=== PATIENT | female | born 1945 | race Caucasian/White ===

== ENCOUNTER 2016-06-16 12:05 | Day surgery (SDC) | payer OTHER ==
[2016-06-15 07:50] VITALS: BMI 18.4
[2016-06-16] MEDS ORDERED: MIDAZOLAM HCL 2 MG/2 ML SINGLE DOSE VIAL ONE (13:45)
[2016-06-16] MEDS ORDERED: ROPIVACAINE HCL 0.5% 30ML VIAL ONE (13:45)
[2016-06-16] MEDS ORDERED: PROPOFOL 20 ML ONE ×2 (14:12)
[2016-06-16] MEDS ORDERED: ceFAZolin SODIUM 1 GM VIAL ONE (14:31)
[2016-06-16] MEDS ORDERED: ONDANSETRON 4 MG/2 ML VIAL ONE (14:58)
[2016-06-16] MEDS ORDERED: ONDANSETRON 4 MG/2 ML VIAL IVPUSH PRN (15:31)
[2016-06-16] MEDS ORDERED: oxyCODONE HCL 5 MG TABLET PO PRN ×2 (15:31)
[2016-06-16 15:41] VITALS: TEMP 98.6
[2016-06-16 16:41] VITALS: BP 110/71; PULSE 72
--- NOTE | 2016-06-16 18:12 | OP ---
DATE OF OPERATION: DATE OF DICTATION: 06/16/2016 PREOPERATIVE DIAGNOSIS: Right comminuted displaced interarticular distal radius fracture. POSTOPERATIVE DIAGNOSIS: Right comminuted displaced interarticular distal radius fracture. OPERATIVE PROCEDURE: 1. Right open reduction internal fixation of comminuted interarticular displaced distal radius fracture with internal fixation of 3 or more fragments. 2. Right brachioradialis tenotomy. SURGEON: Julio César Reyes M.D. REFRIGERATOR ASSEMBLER: Ulises Smith ANESTHESIA: Regional. COMPLICATIONS: None. ESTIMATED BLOOD LOSS: Minimal. INDICATION FOR PROCEDURE: The patient is a 70-year-old female with the above findings, indicated for operative treatment. Risks, benefits, and alternatives were discussed with patient at length, proper informed consent was obtained. PROCEDURE: After proper identification of the patient and correct operative site, patient was brought to the operating room and placed supine on the operating room table, prominences well padded. Sedation was given by the anesthesiologist. Local anesthesia was given at this time. Regional anesthesia is given, 2% lidocaine. Right upper extremity is prepped and draped in usual sterile fashion. Well padded tourniquet was placed with a sterile prep. Esmarch bandage to exsanguinate the right upper extremity. Tourniquet inflated to 250 mmHg. Longitudinal incision was made over the volar aspect of the wrist. Incision was taken sharply through the skin with sharp and blunt dissection to subcutaneous tissues. Flexor carpi radialis tendon along with the contents of the carpal canal were bluntly and gently retracted in an ulnarly direction for the remainder of the procedure. Pronator quadratus was found to be ruptured. It was divided and developed and freed off the volar aspect of distal radius fracture. A high amount of comminution was noted with interarticular extension noted radially. A brachioradialis tenotomy was necessary to release the radial styloid fragment. This was done in a subperiosteal fashion. Fragments were then reduced and held in an Acumed Acu-Loc 2 distal radius plate with distal locking screws and proximal nonlocking screws. This provided secure, stable fixation of the fracture. Distal radial joint and scapholunate intervals were stressed, and there was no instability. Wound was irrigated with saline and repaired in layers including the pronator quadratus with 4-0 Vicryl and 5-0 Monocryl suture. Steri-Strips, sterile dressings and a volar wrist splint were placed. Patient was reversed from anesthesia and brought to recovery in stable condition. He tolerated procedure well. Chance Gillis, the clerical dentist assistant, was integral throughout the procedure. This procedure could not have been performed without a skilled operative clerical dentist assistant. JULIO CÉSAR REYES M.D. [id number]
== END 2016-06-16 16:53 | disposition home or self-care (01) ==
LOC: FASU 12:05
PROVIDERS: ATTEND Orthopaedic Surgery Hand Surgery
PROC: 0LN50ZZ Release Right Lower Arm and Wrist Tendon, Open Approach (ICD-10-PCS; 2016-06-16)
PROC: 0PSH04Z Reposition Right Radius with Internal Fixation Device, Open Approach (ICD-10-PCS; principal; 2016-06-16 14:42)
DX: S52.531A Colles' fracture of right radius, initial encounter for closed fracture (principal); X58.XXXA Exposure to other specified factors, initial encounter; Y93.9 Activity, unspecified; Y92.9 Unspecified place or not applicable
CPT/HCPCS: 73110-TC-RT

== ENCOUNTER 2018-03-13 06:05 | Day surgery (SDC) | payer OTHER ==
[2018-03-01 16:26] VITALS: BMI 17.8
[2018-03-13] MEDS ORDERED: PROPOFOL 20 ML ONE ×3 (06:54→07:33)
[2018-03-13] MEDS ORDERED: LIDOCAINE HCL/PF 2% SDV 5ML VIAL ONE (06:54)
[2018-03-13] MEDS ORDERED: MIDAZOLAM HCL 2 MG/2 ML SINGLE DOSE VIAL ONE ×2 (06:54)
[2018-03-13] MEDS ORDERED: ONDANSETRON 4 MG/2 ML VIAL ONE ×2 (07:00→08:23)
[2018-03-13] MEDS ORDERED: SUCCINYLCHOLINE CHLORIDE 200 MG/10 ML VIAL ONE (07:02)
[2018-03-13] MEDS ORDERED: LIDOCAINE HCL 2% (20ML MULTI-DOSE VIAL) NR ONE (07:22)
[2018-03-13 08:09] VITALS: TEMP 98
[2018-03-13] MEDS ORDERED: DEXAMETHASONE SOD PHOSPHATE 4 MG/1 ML VIAL ONE (08:32)
[2018-03-13 08:39] VITALS: BP 110/65; PULSE 64
[2018-03-13] MEDS ORDERED: oxyCODONE HCL 5 MG TABLET PO PRN (09:32)
[2018-03-13] MEDS ORDERED: ACETAMINOPHEN 325 MG TABLET (FP) PO PRN (09:32)
[2018-03-13] MEDS ORDERED: ONDANSETRON 4 MG/2 ML VIAL IVPUSH PRN (09:32)
[2018-03-13] MEDS ORDERED: LACTATED RINGERS SOLUTION 1,000 ML IV SCH (09:45)
--- NOTE | 2018-03-14 08:47 | OP ---
DATE OF OPERATION: 03/13/2018 PREOPERATIVE DIAGNOSIS: Right thumb trigger-finger. POSTOPERATIVE DIAGNOSIS: Right thumb trigger-finger. OPERATIVE PROCEDURE: Right thumb trigger-finger release. SURGEON: René Layton MD ANESTHESIA: Local with sedation. COMPLICATIONS: None. ESTIMATED BLOOD LOSS: Minimal. INDICATIONS FOR PROCEDURE: The patient is a 72-year-old female with the above findings, indicated for operative treatment. The risks, benefits, and alternatives were discussed with the patient at length. Proper informed consent was obtained. DESCRIPTION OF PROCEDURE: After proper identification of the patient and the correct operative site, the patient was brought to the operating room and placed supine on the operating room table. Bony prominences were well padded. Sedation was given by the anesthesiologist; local anesthesia was given with 2% lidocaine. Right upper extremity was prepped and draped in the usual sterile fashion. A well-padded tourniquet was placed with a sterile prep. Esmarch bandage was used to exsanguinate the right upper extremity. A tourniquet was inflated to 250 mmHg. A transverse incision was made over the A1 jt to the thumb. An incision was taken sharply through the skin with blunt and sharp dissection of subcutaneous tissues. Neurovascular structures were carefully protected. A1 jt was identified and divided. Patient was asked to flex and extend the thumb and no further triggering was noted. Full motion was achieved. Wound was irrigated with saline and repaired with 5-0 nylon sutures. Sterile dressings were applied. Patient was brought to the recovery room in stable condition. She tolerated the procedure well. Bonita [id number]
== END 2018-03-13 08:43 | disposition home or self-care (01) ==
LOC: FASU 06:05
PROVIDERS: ATTEND Orthopaedic Surgery Hand Surgery
PROC: 0LN70ZZ Release Right Hand Tendon, Open Approach (ICD-10-PCS; principal; 2018-03-13 07:42)
DX: M65.311 Trigger thumb, right thumb (principal)